=== PATIENT | female | born 1990 | race Two or more races ===

== ENCOUNTER 2019-02-18 18:22 | Emergency (ER) | payer OTHER, MEDICAID ==
[~2019-02-18] VITALS: Ht 160 cm; Wt 50.0 kg
[2019-02-18] MEDS ORDERED: SODIUM CHLORIDE 0.9% 500 ML IV ONE (19:00)
[2019-02-18] MEDS ORDERED: ALPRAZOLAM 0.25 MG TABLET PO ONE (19:30)
[2019-02-18 20:03] LABS: BASOPHILS % 1.1 % (0.0-2.0); EOSINOPHILS % 1.9 % (0.0-5.0); HEMATOCRIT. 40.6 % (36.0-48.0); HEMOGLOBIN. 13.9 g/dL (12.0-16.0); LYMPHOCYTES % 22.7 % (20.0-50.0); MEAN CORPUSCULAR VOLUME 84.4 fL (81.0-99.0); MEAN PLATELET VOLUME 8.4 fl (7.4-10.4); MONOCYTES % 3.8 % (2.0-8.0); NEUTROPHILS % 70.5 % (40.0-76.0); PLATELET 342 x1000/uL (130-400); RED BLOOD CELL COUNT 4.81 mill/uL (4.2-5.4); RED CELL DISTRIBUTION WIDTH 13.4 % (11.6-14.6)
[2019-02-18 20:08] LABS: CHLORIDE 109 mEq/L (98-107)
[2019-02-18 20:17] LABS: T4 FREE 1.16 ng/dL (0.76-1.46)
[2019-02-18 21:26] LABS: CLARITY URINE CLEAR (CLEAR); COLOR URINE YELLOW (YELLOW); KETONES URINE NEGATIVE (NEGATIVE); LEUKOCYTE ESTERASE URINE NEGATIVE (NEGATIVE); NITRITE URINE NEGATIVE (NEGATIVE); OCCULT BLOOD URINE NEGATIVE (NEGATIVE); PH URINE 6.5 (4.5-8.0); PROTEIN URINE TRACE (NEGATIVE); SPECIFIC GRAVITY URINE 1.021 (1.005-1.030); UROBILINOGEN URINE 0.2 E.U./dL (0.2-1.0)
[2019-02-18 22:00] VITALS: BP 119/76
== END 2019-02-18 23:09 | disposition home or self-care (01) ==
LOC: ER 18:22
DX: R00.0 Tachycardia, unspecified (principal); R00.2 Palpitations
CPT/HCPCS: 36415; 71045; 76830; 76856; 80053; 81003; 81025; 83880; 84439; 84443; 84480; 84484; 85025; 93005; 99284; J7040

== ENCOUNTER 2019-03-10 16:02 | Emergency (ER) | payer MEDICAID, OTHER ==
[~2019-03-10] VITALS: Ht 165.1 cm; Wt 61.0 kg
[2019-03-10 18:20] LABS: EOSINOPHILS % 1.4 % (0.0-5.0); HEMATOCRIT. 41.8 % (36.0-48.0); HEMOGLOBIN. 14.3 g/dL (12.0-16.0); LYMPHOCYTES % 31.2 % (20.0-50.0); MEAN CORPUSCULAR HEMOGLOBIN 28.8 pg (28.0-32.0); MEAN PLATELET VOLUME 8.4 fl (7.4-10.4); MONOCYTES % 5.7 % (2.0-8.0); NEUTROPHILS % 60.7 % (40.0-76.0); PLATELET 301 x1000/uL (130-400); RED BLOOD CELL COUNT 4.97 mill/uL (4.2-5.4); RED CELL DISTRIBUTION WIDTH 13.3 % (11.6-14.6)
[2019-03-10 18:24] LABS: CHLORIDE 109 mEq/L (98-107)
[2019-03-10 18:28] LABS: ETHANOL BLOOD < 10 mg/dL
[2019-03-10 18:29] LABS: *AMPHETAMINES SCREEN URINE NEGATIVE (NEGATIVE); *BARBITURATES SCREEN URINE NEGATIVE (NEGATIVE); *BENZODIAZEPINES SCREEN URINE NEGATIVE (NEGATIVE); *COCAINE SCREEN URINE NEGATIVE (NEGATIVE); METHADONE URINE SCREEN NEGATIVE (NEGATIVE); OPIATES URINE SCREEN NEGATIVE (NEGATIVE)
[2019-03-10 18:30] LABS: CANNABINOID URINE SCREEN NEGATIVE (NEGATIVE); PHENCYCLIDINE URINE SCREEN NEGATIVE (NEGATIVE)
[2019-03-10 18:32] LABS: HCG SCREEN NEGATIVE
[2019-03-10] MEDS ORDERED: LORAZEPAM 1MG TABLET PO ONE (18:45)
[2019-03-10] MEDS ORDERED: METOPROLOL TARTRATE 25MG TABLET PO ONE (19:15)
[2019-03-10 19:59] LABS: T4 FREE 1.13 ng/dL (0.76-1.46)
[2019-03-10 20:18] VITALS: BP 113/71
== END 2019-03-10 20:19 | disposition home or self-care (01) ==
LOC: ER 16:02
DX: R00.2 Palpitations (principal); E86.0 Dehydration; E05.90 Thyrotoxicosis, unspecified without thyrotoxic crisis or storm; R03.0 Elevated blood-pressure reading, without diagnosis of hypertension
CPT/HCPCS: 36415; 80305; 80320; 83735; 84439; 84443; 84481; 84484; 84703; 93005; 99284; G0480